=== PATIENT | female | born 1960 | race Caucasian/White ===

== ENCOUNTER → 2016-07-25 | Outpatient (CLI) | payer OTHER ==
--- NOTE | 2016-07-27 07:41 | MM ---
Reason for exam: screening (asymptomatic). Last mammogram was performed 1 year ago. History: Patient is postmenopausal and is nulliparous. Benign left mammotome panel of the left breast, February 11, 2010. Benign excisional biopsy of the left breast, 1989. Benign excisional biopsy of the left breast, 1987. Took hormonal contraceptives for 10 years beginning at age 20. Physical Findings: A clinical breast exam by your physician is recommended on an annual basis and results should be correlated with mammographic findings. MG Screening Mammo w CAD Bilateral CC and MLO view(s) were taken. Prior study comparison: July 27, 2015, right breast MG 3d work up w/cad RT. July 20, 2015, bilateral MG screening mammo w CAD. Previous mammotome biopsy in the left breast x 2. No significant changes when compared with prior studies. ASSESSMENT: Benign, BI-RAD 2 RECOMMENDATION: Routine screening mammogram of both breasts in 1 year.
== END | disposition home or self-care (01) ==
LOC: RADMAMWWP 16:33
PROVIDERS: ATTEND Obstetrics & Gynecology
DX: Z12.31 Encounter for screening mammogram for malignant neoplasm of breast (principal); Z80.3 Family history of malignant neoplasm of breast

== ENCOUNTER → 2016-09-05 | Outpatient (CLI) | payer OTHER ==
--- NOTE | 2016-09-06 08:29 | BD ---
EXAMINATION TYPE: MG DEXA axial skeleton. DATE OF EXAM: 09/05/2016 4:31 PM COMPARISON: NONE CLINICAL HISTORY: osteopenia Height: 5'7 Weight: 232 FRAX RISK QUESTIONS: Alcohol (3 or more units per day): no Family History (Parent hip fracture): no Glucocorticoids (More than 3mos): no (Ex: prednisone, prednisolone, methylprednisolone, dexamethasone, and hydrocortisone). History of Fracture in Adulthood: yes Secondary Osteoporosis: 1. Type 1 Diabetes: no 2. Hyperthyroidism: no 3. Menopause before 45: yes 4. Malnutrition: no 5. Chronic liver disease: no Rheumatoid Arthritis: no Current Tobacco Use: no RISK FACTORS HISTORY OF: Surgery to Spine When: 20 years ago Postmenopausal woman: MEDICATIONS: Additional Medications: diabetes, chol sterol, pain Additional History: EXAM MEASUREMENTS: Bone mineral density about the R hip (g/cm2): 0.721 Bone mineral density about the L hip (g/cm2): 0.785 T Score values are as follows: -----R Neck: -2.3 -----L Neck: -1.8 -----R Intertrochanter: -1.5 -----L Intertrochanter: -1.0 IMPRESSION: Osteopenia (T Score between -2.5 and -1 as noted by T score values: Jaime Hips There is slightly increased risk of fracture and the patient may be considered for treatment. Re-Screen 1-2 years. NOTE: T-SCORE=SD OF THE YOUNG ADULT MEAN.
== END | disposition home or self-care (01) ==
LOC: RADBDWWP 16:15
PROVIDERS: ATTEND Obstetrics & Gynecology
DX: M85.851 Other specified disorders of bone density and structure, right thigh (principal); M85.852 Other specified disorders of bone density and structure, left thigh
CPT/HCPCS: 77080

== ENCOUNTER → 2017-01-25 | Outpatient (CLI) | payer OTHER ==
--- NOTE | 2017-01-25 10:05 | FL ---
EXAMINATION TYPE: FL UGI DATE OF EXAM: 01/25/2017 CLINICAL HISTORY: Difficulty in swallowing TECHNIQUE: A double contrast UGI study is performed. COMPARISON: None FINDINGS: Audio Tape Librarian image of the abdomen shows no gross abnormality.The esophagus shows normal motility and emptying into the stomach. There is mild gastroesophageal reflux noted. Small reducible hiatal he rnia identified. The stomach shows normal distensibility, peristalsis, and mucosal folds. No evidenc e of any mass or ulcer disease. The duodenal bulb, sweep, and proximal small bowel loops are unremar kable. Incidental diverticulum, descending portion of the duodenum. IMPRESSION: 1. Mild gastroesophageal reflux without evidence for esophagitis. 2. Small sliding-type hiatal hernia. 3. Duodenal diverticulum.
== END ==
LOC: RADFLMAIN 09:12
PROVIDERS: ATTEND Family Medicine
DX: K21.9 Gastro-esophageal reflux disease without esophagitis (principal); K44.9 Diaphragmatic hernia without obstruction or gangrene; K57.10 Diverticulosis of small intestine without perforation or abscess without bleeding
CPT/HCPCS: 74240

== ENCOUNTER → 2017-08-01 | Outpatient (CLI) | payer OTHER ==
--- NOTE | 2017-08-02 14:36 | MM ---
Reason for exam: screening (asymptomatic). Last mammogram was performed 1 year ago. History: Patient is postmenopausal and is nulliparous. Benign left mammotome panel of the left breast, February 11, 2010. Benign excisional biopsy of the left breast, 1989. Benign excisional biopsy of the left breast, 1987. Took hormonal contraceptives for 10 years beginning at age 20. Physical Findings: A clinical breast exam by your physician is recommended on an annual basis and results should be correlated with mammographic findings. MG 3D Screening Mammo W/Cad Bilateral CC and MLO view(s) were taken. Prior study comparison: July 25, 2016, bilateral MG screening mammo w CAD. July 27, 2015, right breast MG 3d work up w/cad RT. The breast tissue is heterogeneously dense. This may lower the sensitivity of mammography. Previous mammotome biopsy in the left breast. No significant changes when compared with prior studies. ASSESSMENT: Benign, BI-RAD 2 RECOMMENDATION: Routine screening mammogram of both breasts in 1 year.
== END | disposition home or self-care (01) ==
LOC: RADMAMWWP 16:11
PROVIDERS: ATTEND Obstetrics & Gynecology
DX: Z12.31 Encounter for screening mammogram for malignant neoplasm of breast (principal)
CPT/HCPCS: 77063; 77067

== ENCOUNTER → 2018-08-21 | Outpatient (CLI) | payer OTHER ==
--- NOTE | 2018-08-23 10:23 | MM ---
Reason for exam: screening (asymptomatic). Last mammogram was performed 1 year and 1 month ago. History: Patient is postmenopausal and is nulliparous. Benign left mammotome panel of the left breast, February 11, 2010. Benign excisional biopsy of the left breast, 1989. Benign excisional biopsy of the left breast, 1987. Took hormonal contraceptives for 10 years beginning at age 20. Physical Findings: A clinical breast exam by your physician is recommended on an annual basis and results should be correlated with mammographic findings. MG 3D Screening Mammo W/Cad Bilateral CC, MLO, and XCCL view(s) were taken. Prior study comparison: August 01, 2017, bilateral MG 3d screening mammo w/cad. July 25, 2016, bilateral MG screening mammo w CAD. The breast tissue is heterogeneously dense. This may lower the sensitivity of mammography. Previous mammotome biopsy in the left breast x 2. No significant changes when compared with prior studies. ASSESSMENT: Negative, BI-RAD 1 RECOMMENDATION: Routine screening mammogram of both breasts in 1 year.
== END | disposition home or self-care (01) ==
LOC: RADMAMWWP 07:32
PROVIDERS: ATTEND Obstetrics & Gynecology
DX: Z12.31 Encounter for screening mammogram for malignant neoplasm of breast (principal)
CPT/HCPCS: 77063; 77067

== ENCOUNTER → 2018-09-24 | Outpatient (CLI) | payer OTHER ==
--- NOTE | 2018-09-24 15:13 | BD ---
EXAMINATION TYPE: Axial Bone Density DATE OF EXAM: 09/24/2018 COMPARISON: 08/19/08 CLINICAL HISTORY: Height: 66.5 IN Weight: 240 LBS FRAX RISK QUESTIONS: History of Fracture in Adulthood: LEFT FOOT AGE 50 Secondary Osteoporosis: 3. Menopause before 45: YES TOTAL HYST AGE 37 RISK FACTORS HISTORY OF: Surgery to Spine: L4-L5 When: AGE 30 Active: YES Postmenopausal woman: AGE 37 MEDICATIONS: Additional Medications: CALCIUM, VIT D, LOVASTATIN, METFORMIN, NAPROXEN,MULTI VIT, MAGNESIUM, ZINC EXAM MEASUREMENTS: Bone mineral densitometry was performed using the [employer]. L4-L5 SURGERY AGE 30 Bone mineral density about the R hip (g/cm2): 0.725 Bone mineral density about the L hip (g/cm2): 0.755 T Score values are as follows: -----R Neck: -2.3 -----L Neck: -2.0 -----R Total: -1.6 -----L Total: -1.0 Bone mineral density has: Decreased -2.7% since study of: 08/19/2008 Bone mineral density about the L Wrist (g/cm2): 0.635 T Score values are as follows: -----Dist. R+U: -1.5 -----Prox. R+U: -0.1 -----Radius total: -0.7 Bone mineral density BASELINE IMPRESSION: Osteopenia (T Score between -2.5 and -1). There is slightly increased risk of fracture and the patient may be considered for treatment. Re-Screen 2-5 years. NOTE: T-SCORE=SD OF THE YOUNG ADULT MEAN.
== END | disposition home or self-care (01) ==
LOC: RADBDWWP 07:52
PROVIDERS: ATTEND Obstetrics & Gynecology
DX: M85.80 Other specified disorders of bone density and structure, unspecified site (principal)
CPT/HCPCS: 77080

== ENCOUNTER → 2019-11-27 | Outpatient (CLI) | payer OTHER ==
--- NOTE | 2019-11-27 13:44 | MM ---
Reason for exam: screening (asymptomatic). Last mammogram was performed 1 year and 3 months ago. History: Patient is postmenopausal and is nulliparous. Benign left mammotome panel of the left breast, February 11, 2010. Benign excisional biopsy of the left breast, 1989. Benign excisional biopsy of the left breast, 1987. Took hormonal contraceptives for 10 years beginning at age 20. Physical Findings: A clinical breast exam by your physician is recommended on an annual basis and results should be correlated with mammographic findings. MG 3D Screening Mammo W/Cad Bilateral CC and MLO view(s) were taken. Prior study comparison: August 21, 2018, bilateral MG 3d screening mammo w/cad. August 01, 2017, bilateral MG 3d screening mammo w/cad. The breast tissue is heterogeneously dense. This may lower the sensitivity of mammography. Increasing indeterminate microcalcifications upper central left breast. This finding is changed when compared with previous exams. ASSESSMENT: Incomplete: need additional imaging evaluation, BI-RAD 0 RECOMMENDATION: Special view mammogram of the left breast. [facility] will attempt to contact patient to return for supplemental views.
== END | disposition home or self-care (01) ==
LOC: RADMAMWWP 08:16
PROVIDERS: ATTEND Obstetrics & Gynecology
DX: Z12.31 Encounter for screening mammogram for malignant neoplasm of breast (principal)
CPT/HCPCS: 77063; 77067

== ENCOUNTER → 2019-12-03 | Outpatient (CLI) | payer OTHER ==
--- NOTE | 2019-12-03 10:03 | MM ---
Reason for exam: additional evaluation requested from abnormal screening. Last mammogram was performed less than 1 month ago. History: Patient is postmenopausal and is nulliparous. Benign left mammotome panel of the left breast, February 11, 2010. Benign excisional biopsy of the left breast, 1989. Benign excisional biopsy of the left breast, 1987. Took hormonal contraceptives for 10 years beginning at age 20. Physical Findings: Nurse did not find any significant physical abnormalities on exam. MG 3D Work Up W/Cad LT CC with magnification, LM with magnification, and LM view(s) were taken of the left breast. Prior study comparison: November 27, 2019, bilateral MG 3d screening mammo w/cad. August 21, 2018, bilateral MG 3d screening mammo w/cad. There are some partially layering calcifications upper outer left breast. 6 month follow up recommended. These results were verbally communicated with the patient and result sheet given to the patient on 12/03/19. ASSESSMENT: Probably benign, BI-RAD 3 RECOMMENDATION: Follow-up diagnostic mammogram of the left breast in 6 months. (with magnification views)
== END | disposition home or self-care (01) ==
LOC: RADMAMWWP 08:55
PROVIDERS: ATTEND Obstetrics & Gynecology
DX: R92.8 Other abnormal and inconclusive findings on diagnostic imaging of breast (principal)
CPT/HCPCS: 77061; 77065

== ENCOUNTER → 2020-03-26 | Outpatient (CLI) | payer OTHER ==
[2020-03-26 09:36] LABS: Basophils # (A) 0.1 k/uL (0-0.2); Basophils % (A) 1 %; Eosinophils # (A) 0.2 k/uL (0-0.7); Eosinophils % (A) 3 %; HCT 45.2 % (34.0-46.0); HGB 14.4 gm/dL (11.4-16.0); Lymphocytes % (A) 32 %; MCH 29.7 pg (25.0-35.0); MCHC 31.9 g/dL (31.0-37.0); Mean Platelet Volume 9.9; Monocytes # (A) 0.3 k/uL (0-1.0); Monocytes % (A) 5 %; Neutrophils # (A) 3.4 k/uL (1.3-7.7); Neutrophils % (A) 55 %; Platelet Count 265 k/uL (150-450); RBC 4.86 m/uL (3.80-5.40); WBC 6.2 k/uL (3.8-10.6)
[2020-03-26 14:40] LABS: African American GFR (CKD) 93.5 (60.0-200.0); Anion Gap 3.2 mmol/L (4.00-12.00); BUN/Creat Ratio 22.5 Ratio (12.00-20.00); Calcium 9.9 mg/dL (8.7-10.3); Carbon Dioxide 32.8 mmol/L (21.6-31.8); Chol/HDL Ratio 3.42; Non-African American GFR(CKD) 80.7 (60.0-200.0); Potassium 4.5 mmol/L (3.5-5.5)
[2020-03-26 16:31] LABS: Hemoglobin A1C 6.2 % (4.0-6.0)
== END | disposition home or self-care (01) ==
LOC: LABWHC1 08:10
PROVIDERS: ATTEND Family Medicine
DX: E11.9 Type 2 diabetes mellitus without complications (principal); E55.9 Vitamin D deficiency, unspecified; E78.5 Hyperlipidemia, unspecified; R03.0 Elevated blood-pressure reading, without diagnosis of hypertension
CPT/HCPCS: 36415; 80048; 80061; 82306; 83036; 83735; 84450; 84460; 85025

== ENCOUNTER → 2020-06-01 | Outpatient (CLI) | payer OTHER ==
--- NOTE | 2020-06-02 09:14 | MM ---
Reason for exam: follow-up at short interval from prior study. Last mammogram was performed 6 months ago. History: Patient is postmenopausal and is nulliparous. Benign left mammotome panel of the left breast, February 11, 2010. Benign excisional biopsy of the left breast, 1989. Benign excisional biopsy of the left breast, 1987. Took hormonal contraceptives for 10 years beginning at age 20. Physical Findings: Nurse did not find any significant physical abnormalities on exam. MG 3D Diag Mammo W/Cad LT CC and MLO view(s) were taken of the left breast. Prior study comparison: December 03, 2019, left breast MG 3d work up w/cad LT. November 27, 2019, bilateral MG 3d screening mammo w/cad. There are scattered fibroglandular densities. Previous mammotome biopsy in the left breast. Very faint subtle calcifications are suggested centrally in the left breast, stable for 6 months. Additional 6 month follow up recommended. These results were verbally communicated with the patient and result sheet given to the patient on 06/01/20. ASSESSMENT: Probably benign, BI-RAD 3 RECOMMENDATION: Follow-up diagnostic mammogram of both breasts in 6 months. Back on schedule for November 2020.
== END | disposition home or self-care (01) ==
LOC: RADMAMWWP 15:05
PROVIDERS: ATTEND Obstetrics & Gynecology
DX: R92.8 Other abnormal and inconclusive findings on diagnostic imaging of breast (principal)
CPT/HCPCS: 77061; 77065

== ENCOUNTER → 2020-09-01 | Outpatient (CLI) | payer OTHER ==
[2020-09-01 12:59] LABS: Appearance,Urine Clear (Clear); Bilirubin,Urine 2+ (Negative); Blood,Urine Negative (Negative); Color,Urine Yellow; Glucose,Urine (UA) Negative (Negative); Ketones,Urine Negative (Negative); Leukocyte Esterase,Urine Negative (Negative); Nitrite,Urine Negative (Negative); PH, Urine 5.5 (5.0-8.0); Protein,Urine Negative (Negative); Specific Gravity,Urine 1.017 (1.001-1.035); Urobilinogen,Urine <2.0 mg/dL (<2.0)
[2020-09-01 15:52] LABS: HGB 13.8 g/dL (12.0-15.0); MCH 29.7 pg (27.0-32.0); MCHC 32.1 g/dL (32.0-37.0); MCV 92.7 fL (80.0-97.0); Mean Platelet Volume 12.5 fL (9.5-12.2); Platelet Count 307 X 10*3/uL (140-440); RBC 4.64 X 10*6/uL (4.10-5.20); RDW 12.2 % (11.5-14.5); WBC 5.49 X 10*3/uL (4.50-10.00)
[2020-09-01 17:11] LABS: Appearance,Urine Clear (Clear); Bilirubin,Urine Negative (Negative); Blood,Urine Negative (Negative); Color,Urine Light Yellow; Glucose,Urine (UA) Negative (Negative); Ketones,Urine Negative (Negative); Leukocyte Esterase,Urine Negative (Negative); Nitrite,Urine Negative (Negative); PH, Urine 6.5 (5.0-8.0); Protein,Urine Negative (Negative); Specific Gravity,Urine 1.002 (1.001-1.035); Urobilinogen,Urine <2.0 mg/dL (<2.0)
[2020-09-01 17:39] LABS: African American GFR (CKD) 93.5 (60.0-200.0); Albumin 4.8 g/dL (3.80-4.90); Albumin/Globulin Ratio 2.4 (1.60-3.17); Anion Gap 11.2 mmol/L (4.00-12.00); Calcium 9.7 mg/dL (8.7-10.3); Carbon Dioxide 25.8 mmol/L (21.6-31.8); Chol/HDL Ratio 4.64; LDL Cholesterol,Calculated 81.6 mg/dL (0.0-131.0); Non-African American GFR(CKD) 80.7 (60.0-200.0); Potassium 4.4 mmol/L (3.5-5.5); Total Bilirubin 0.5 mg/dL (0.3-1.2); Total Protein 6.8 g/dL (6.2-8.2); VLDL Calculation 60.4 mg/dL (5.00-40.00)
[2020-09-01 20:14] LABS: Hemoglobin A1C 6.4 % (4.0-6.0)
[2020-09-02 01:09] LABS: Urine Creatinine 99.7 mg/dL
[2020-09-02 11:23] LABS: Urine Creatinine 33.7 mg/dL
== END | disposition home or self-care (01) ==
LOC: LABWHC1 07:23
PROVIDERS: ATTEND Family Medicine
DX: Z00.00 Encounter for general adult medical examination without abnormal findings (principal); E11.9 Type 2 diabetes mellitus without complications
CPT/HCPCS: 36415; 80053; 80061; 81003; 82043; 82306; 82570; 83036; 85027

== ENCOUNTER → 2020-12-02 | Outpatient (CLI) | payer OTHER ==
--- NOTE | 2020-12-02 12:16 | BD ---
EXAMINATION TYPE: Axial Bone Density DATE OF EXAM: 12/02/2020 COMPARISON: 09.24.2018 CLINICAL HISTORY: 60 YR OLD FEMALE.....ICD-10 CODE: M89.9 DISORDER OF BONE Height: 66.2 Weight: 225 FRAX RISK QUESTIONS: History of Fracture in Adulthood: YES Secondary Osteoporosis: YES 3. Menopause before 45: YES RISK FACTORS HISTORY OF: RT FOOT FX AN ADULT Surgery to Spine L4,L5 FUSION TO SPINE Postmenopausal woman: TOTAL HYST AT AGE 40 OR YOUNGER Hyperparathyroidism: NO Adrenal Insufficiency: NO MEDICATIONS: Additional Medications: REFLUX MEDS, STATIN FOR CHOLESTEROL, VIT D3 AND CALCIUM, METFORMIN Additional History: EARLY SURGICAL MENOPAUSE, REFLUX, CHOLESTEROL, DIABETES EXAM MEASUREMENTS: Bone mineral densitometry was performed using the [employer] System. Bone mineral density about the R hip (g/cm2): 0.808 Bone mineral density about the L hip (g/cm2): 0.857 T Score values are as follows: -----R Neck: -2.3 -----L Neck: -2.1 -----R Total: -1.6 -----L Total: -1.2 Bone mineral density has: Decreased -1.3% since study of: 09.24.2018 FRAX%s: THERE IS A 16.6% CHANCE FOR A MAJOR OSTEOPOROTIC FX AND A 2.7% FOR HIP.....PROBABILITY FOR FX IN 10 YRS TIME Bone mineral density about the L Wrist (g/cm2): 0.595 T Score values are as follows: -----Dist. R+U: -1.7 -----Prox. R+U: -0.6 -----Radius total: -0.6 Bone mineral density has: Decreased -4.2% since study of: 09.24.2018 IMPRESSION: Osteopenia. NOTE: T-SCORE=SD OF THE YOUNG ADULT MEAN.
== END | disposition home or self-care (01) ==
LOC: RADBDWWP 09:58
PROVIDERS: ATTEND Obstetrics & Gynecology
DX: M85.80 Other specified disorders of bone density and structure, unspecified site (principal)
CPT/HCPCS: 77080

== ENCOUNTER → 2020-12-27 | Outpatient (CLI) | payer OTHER ==
--- NOTE | 2020-12-28 15:13 | MM ---
Reason for exam: additional evaluation requested from prior study. Last mammogram was performed 7 months ago. History: Patient is postmenopausal and is nulliparous. Benign left mammotome panel of the left breast, February 11, 2010. Benign excisional biopsy of the left breast, 1989. Benign excisional biopsy of the left breast, 1987. Took hormonal contraceptives for 10 years beginning at age 20. Physical Findings: Nurse did not find any significant physical abnormalities on exam. MG 3D Diag Mammo W/Cad BETITO Bilateral CC and MLO view(s) were taken. Prior study comparison: June 01, 2020, left breast MG 3d diag mammo w/cad LT. December 03, 2019, left breast MG 3d work up w/cad LT. Previous mammotome biopsy in the left breast. No significant new findings when compared with previous films. These results were verbally communicated with the patient and result sheet given to the patient on 12/27/20. ASSESSMENT: Benign, BI-RAD 2 RECOMMENDATION: Routine screening mammogram of both breasts in 1 year.
== END | disposition home or self-care (01) ==
LOC: RADMAMWWP 14:06
PROVIDERS: ATTEND Obstetrics & Gynecology
DX: Z78.0 Asymptomatic menopausal state (principal)
CPT/HCPCS: 77062; 77066

== ENCOUNTER → 2021-02-18 | Outpatient (CLI) | payer OTHER ==
[2021-02-18 08:02] LABS: Appearance,Urine Clear (Clear); Bilirubin,Urine Negative (Negative); Blood,Urine Negative (Negative); Color,Urine Light Yellow; Glucose,Urine (UA) Negative (Negative); Ketones,Urine Negative (Negative); Leukocyte Esterase,Urine Small (Negative); Nitrite,Urine Negative (Negative); PH, Urine 6.5 (5.0-8.0); Protein,Urine Negative (Negative); RBC,Urine <1 /hpf (0-5); Squamous Epithelial Cell,Urine 1 /hpf (0-4); Urobilinogen,Urine <2.0 mg/dL (<2.0); WBC,Urine 5 /hpf (0-5)
[2021-02-18 11:23] LABS: HCT 42.6 % (37.2-46.3); HGB 13.8 g/dL (12.0-15.0); MCH 29.8 pg (27.0-32.0); MCHC 32.4 g/dL (32.0-37.0); Mean Platelet Volume 12.5 fL (9.5-12.2); Platelet Count 274 X 10*3/uL (140-440); RBC 4.63 X 10*6/uL (4.10-5.20); RDW 11.9 % (11.5-14.5); WBC 5.42 X 10*3/uL (4.50-10.00)
[2021-02-18 15:55] LABS: African American GFR (CKD) 125.2 (60.0-200.0); Albumin 4.9 g/dL (3.8-4.9); Albumin/Globulin Ratio 1.96 (1.60-3.17); Anion Gap 14.1 mmol/L (4.00-12.00); BUN/Creat Ratio 24.51 Ratio (12.00-20.00); Blood Urea Nitrogen 11.3 mg/dL (9.0-27.0); Calcium 9.7 mg/dL (8.7-10.3); Carbon Dioxide 23.9 mmol/L (21.6-31.8); Chol/HDL Ratio 4.83 Ratio; Globulin 2.5 g/dL (1.6-3.3); HDL Cholesterol 41.6 mg/dL (40.00-60.00); LDL Cholesterol,Calculated 106.2 mg/dL (0.0-131.0); Potassium 4.2 mmol/L (3.5-5.5); Total Bilirubin 0.4 mg/dL (0.30-1.20); Total Protein 7.4 g/dL (6.2-8.2); VLDL Calculation 53.2 mg/dL (5.00-40.00)
== END | disposition home or self-care (01) ==
LOC: LABWHC1 07:13
PROVIDERS: ATTEND Family Medicine
DX: E03.9 Hypothyroidism, unspecified (principal); E11.9 Type 2 diabetes mellitus without complications; E55.9 Vitamin D deficiency, unspecified; E78.5 Hyperlipidemia, unspecified
CPT/HCPCS: 36415; 80053; 80061; 81001; 82306; 83036; 84443; 85027

== ENCOUNTER → 2021-12-28 | Outpatient (CLI) | payer OTHER ==
--- NOTE | 2021-12-29 09:17 | MM ---
Reason for Exam: Screening (asymptomatic). Last screening mammogram was performed 12 month(s) ago. Patient History: Menarche at age 12. Patient has no children. Left ovary removed at age 41. Right ovary removed at age 41. Hysterectomy at age 41. Postmenopausal. Hormonal Contraceptives for 10 years from age 20 until age 30. 1989, Benign Excisional Biopsy on the left side. 1987, Benign Excisional Biopsy on the left side. 02/11/2010, Benign Core Biopsy on the left side. Risk Values: Shantelle 5 year model risk: 2.5%. NCI Lifetime model risk: 11.6%. Prior Study Comparison: 08/16/2010 Bilateral Diagnostic Mammogram, [facility]. 07/27/2015 Right Diagnostic Mammogram, [facility]. 08/01/2017 Bilateral Screening Mammogram, [facility]. 08/21/2018 Bilateral Screening Mammogram, [facility]. 11/27/2019 Bilateral Screening Mammogram, [facility]. 12/03/2019 Left Diagnostic Mammogram, [facility]. 06/01/2020 Left Diagnostic Mammogram, [facility]. 12/27/2020 Bilateral Diagnostic Mammogram, [facility]. Tissue Density: The breast tissue is heterogeneously dense. This may lower the sensitivity of mammography. Findings: Analyzed By CAD. There are left biopsy clips. There is no suspicious group of microcalcifications or new suspicious mass in either breast. Overall Assessment: Negative, BI-RAD 1 Management: Screening Mammogram of both breasts in 1 year. A clinical breast exam by your physician is recommended on an annual basis and results should be correlated with mammographic findings. Electronically signed and approved by: Bernard Smith DO
== END | disposition home or self-care (01) ==
LOC: RADMAMWWP 08:59
PROVIDERS: ATTEND Obstetrics & Gynecology
DX: Z12.31 Encounter for screening mammogram for malignant neoplasm of breast (principal); Z78.0 Asymptomatic menopausal state
CPT/HCPCS: 77063; 77067

== ENCOUNTER → 2022-02-15 | Outpatient (CLI) | payer OTHER ==
[2022-02-15 14:27] LABS: Appearance,Urine Clear (Clear); Bilirubin,Urine Negative (Negative); Blood,Urine Negative (Negative); Color,Urine Yellow (Yellow); Ketones,Urine Negative (Negative); Nitrite,Urine Negative (Negative)
[2022-02-15 14:30] LABS: Bacteria,Urine None Seen /HPF (None Seen)
[2022-02-15 14:43] LABS: Basophils # (A) 0.05 X 10*3/uL (0.00-0.10); Eosinophils # (A) 0.23 X 10*3/uL (0.04-0.35); Eosinophils % (A) 4.4 %; HCT 40.7 % (37.2-46.3); HGB 13.3 g/dL (12.0-15.0); Immature Grans, Automated 0 %; Lymphocytes # (A) 2.14 X 10*3/uL (0.90-5.00); Lymphocytes % (A) 40.7 %; MCH 30.4 pg (27.0-32.0); MCHC 32.7 g/dL (32.0-37.0); MCV 92.9 fL (80.0-97.0); Mean Platelet Volume 12.1 fL (9.5-12.2); Monocytes # (A) 0.36 X 10*3/uL (0.20-1.00); Monocytes % (A) 6.8 %; NRBC Per 100 WBC 0 /100 WBCS (0.0-0.0); Neutrophils # (A) 2.48 X 10*3/uL (1.80-7.70); Neutrophils % (A) 47.1 %; Platelet Count 252 X 10*3/uL (140-440); RBC 4.38 X 10*6/uL (4.10-5.20); RDW 11.4 % (11.5-14.5); WBC 5.26 X 10*3/uL (4.50-10.00)
[2022-02-15 15:11] LABS: ALT 16 U/L (8-44); AST 19 U/L (13-35); African American GFR (CKD) 92.8 (60.0-200.0); Albumin 4.5 g/dL (3.8-4.9); Albumin/Globulin Ratio 1.74 (1.60-3.17); Alkaline Phosphatase 92 U/L (41-126); BUN/Creat Ratio 18.84 Ratio (12.00-20.00); Calcium 9.4 mg/dL (8.7-10.3); Chloride 102 mmol/L (96-109); Chol/HDL Ratio 4.57 Ratio; Globulin 2.6 g/dL (1.6-3.3); Glucose 141 mg/dL (70-110); LDL Cholesterol,Calculated 94.4 mg/dL (0.0-131.0); Non-African American GFR(CKD) 80.1 (60.0-200.0); Potassium 4.5 mmol/L (3.5-5.5); Sodium 141 mmol/L (135-145); Total Protein 7.1 g/dL (6.2-8.2)
[2022-02-15 21:51] LABS: Microalbumin Creatinine Ratio <30 mg/g Creat (0-30)
== END | disposition home or self-care (01) ==
LOC: LABWHC1 07:43
PROVIDERS: ATTEND Family Medicine
DX: E11.9 Type 2 diabetes mellitus without complications (principal); E78.5 Hyperlipidemia, unspecified; E55.9 Vitamin D deficiency, unspecified
CPT/HCPCS: 36415; 80053; 80061; 81001; 82043; 82306; 82570; 83036; 85025

== ENCOUNTER → 2022-08-16 | Outpatient (CLI) | payer OTHER ==
[2022-08-16 10:39] LABS: HCT 40.8 % (37.2-46.3); MCH 29.1 pg (27.0-32.0); MCHC 31.9 g/dL (32.0-37.0); MCV 91.5 fL (80.0-97.0); Mean Platelet Volume 12.5 fL (9.5-12.2); NRBC Per 100 WBC 0 /100 WBCS (0.0-0.0); Platelet Count 246 X 10*3/uL (140-440); RBC 4.46 X 10*6/uL (4.10-5.20); RDW 11.6 % (11.5-14.5); WBC 5.76 X 10*3/uL (4.50-10.00)
[2022-08-16 11:11] LABS: ALT 22 U/L (8-44); AST 16 U/L (13-35); African American GFR (CKD) 92.2 (60.0-200.0); Albumin 4.8 g/dL (3.8-4.9); Alkaline Phosphatase 99 U/L (41-126); BUN/Creat Ratio 19.25 Ratio (12.00-20.00); Blood Urea Nitrogen 15.4 mg/dL (9.0-27.0); Calcium 9.7 mg/dL (8.7-10.3); Chloride 104 mmol/L (96-109); Chol/HDL Ratio 4.77 Ratio; Globulin 2.4 g/dL (1.6-3.3); Glucose 159 mg/dL (70-110); LDL Cholesterol,Calculated 78.3 mg/dL (0.0-131.0); Non-African American GFR(CKD) 79.6 (60.0-200.0); Potassium 4.7 mmol/L (3.5-5.5); Sodium 140 mmol/L (135-145); Total Protein 7.2 g/dL (6.2-8.2)
[2022-08-16 13:47] LABS: Appearance,Urine Clear (Clear); Bacteria,Urine None Seen /HPF (None Seen); Bilirubin,Urine Large (Negative); Blood,Urine Negative (Negative); Calcium Oxalate Crystals,Urine Present /LPF (None Seen); Color,Urine Dark Yellow (Yellow); Ketones,Urine Trace mg/dL (Negative); Nitrite,Urine Negative (Negative); PH, Urine 5.5 (5.0-8.0); Specific Gravity,Urine >1.035 (1.001-1.030)
== END | disposition home or self-care (01) ==
LOC: LABWHC1 07:36
PROVIDERS: ATTEND Family Medicine
DX: Z00.00 Encounter for general adult medical examination without abnormal findings (principal)
CPT/HCPCS: 36415; 80053; 80061; 81001; 82043; 82570; 83036; 84439; 84443; 85027

== ENCOUNTER → 2022-08-30 | Outpatient (CLI) | payer OTHER ==
--- NOTE | 2022-08-30 15:19 | XR ---
EXAMINATION TYPE: XR lumbar spine 2 or 3V DATE OF EXAM: 08/30/2022 CLINICAL HISTORY: pain TECHNIQUE: Three views of the lumbar spine are submitted. COMPARISON: CT abdomen and pelvis 01/14/2016 FINDINGS: There are 5 lumbar type vertebral bodies identified. No acute fracture. Minimal grade 1 anterolisthes is of L4-L5. Mild facet arthropathy L4-L5. Postsurgical changes with disc spacer at L5-S1. Vertebral body heights are within normal limits. Mild disc space narrowing at L1-L2 with endplate sclerosis. The overlying soft tissue appears unremarkable. Surgical clips demonstrated within the pelvis. IMPRESSION: 1. No acute fracture. 2. Postsurgical change at L5-S1. 3. Minimal degenerative disc disease.
== END | disposition home or self-care (01) ==
LOC: RADXRMAIN 14:08
PROVIDERS: ATTEND Family Medicine
DX: M51.36 Other intervertebral disc degeneration, lumbar region (principal); Z98.890 Other specified postprocedural states
CPT/HCPCS: 72100

== ENCOUNTER → 2023-01-01 | Outpatient (CLI) | payer OTHER ==
--- NOTE | 2023-01-01 08:55 | BD ---
EXAMINATION TYPE: Axial Bone Density DATE OF EXAM: 01/01/2023 CLINICAL HISTORY: 62 years old Female. ICD-10 CODE: 85.88DISRD OF BONE DENSITY AND STRUCTURE, Height: 66.2 Weight: 232 FRAX RISK QUESTIONS: secondary osteoporosis due to menopause from total hyst. at age 38. History of Fracture in Adulthood: yes RISK FACTORS HISTORY OF: hx of rt foot fracture as an adult Surgery to Spine fusion L4 and L5.. Postmenopausal woman: yes, at age 32 yrs old Hyperparathyroidism: no Adrenal Insufficiency: no MEDICATIONS: Additional Medications: metformin, reflux meds, statin for cholesterol, vit d and calcium Additional History: right TKR, fusion lumbar spine, osteoarthritis, cholesterol, reflux, diabetic, EXAM MEASUREMENTS: Bone mineral densitometry was performed using the [employer] System. Bone mineral density about the R hip (g/cm2): 0.751 Bone mineral density about the L hip (g/cm2): 0.894 T Score values are as follows: -----R Neck: -2.5 -----L Neck: -1.9 -----R Total: -2.0 -----L Total: -0.9 Z Score values are as follows: -----R Neck: -1.1 -----L Neck: -0.5 -----R Total: -0.9 -----L Total: 0.3 Bone mineral density has: Decreased -1.1% since study of: 12.02.2020 Bone mineral density about the L Wrist (g/cm2): 0.587 T Score values are as follows: -----Dist. R+U: -1.7 -----Prox. R+U: -0.9 -----Radius total: -0.8 Z Score values are as follows: -----Dist. R+U: -0.6 -----Prox. R+U: 0.2 -----Radius total: 0.3 Bone mineral density has: Decreased -3.4% since study of: 12.02.2020 FRAX%s: The graph provided illustrates a 19.0% chance for a major osteoporotic fx and a 4.2% chance f or the hips probability for fx in 10 years time. IMPRESSION: Osteopenia (T Score between -2.5 and -1). There is slightly increased risk of fracture and the patient may be considered for treatment. Re-Screen 2-5 years. NOTE: T-SCORE=SD OF THE YOUNG ADULT MEAN.
--- NOTE | 2023-01-01 10:23 | MM ---
Reason for Exam: Screening (asymptomatic). Last screening mammogram was performed 12 month(s) ago. Patient History: Menarche at age 12. Patient has no children. Left ovary removed at age 41. Right ovary removed at age 41. Hysterectomy at age 41. Postmenopausal. Hormonal Contraceptives for 10 years from age 20 until age 30. 1989, Benign Excisional Biopsy on the left side. 1987, Benign Excisional Biopsy on the left side. 02/11/2010, Benign Core Biopsy on the left side. Paternal cousin had breast cancer. Risk Values: Shantelle 5 year model risk: 2.6%. NCI Lifetime model risk: 11.3%. Prior Study Comparison: 06/01/2020 Left Diagnostic Mammogram, [facility]. 12/27/2020 Bilateral Diagnostic Mammogram, [facility]. 12/28/2021 Bilateral MG 3D screening mammo w/cad, [facility]. Tissue Density: The breast tissue is heterogeneously dense. This may lower the sensitivity of mammography. Findings: Analyzed By CAD. Left breast biopsy clips. There is no suspicious group of microcalcifications or new suspicious mass in either breast. Overall Assessment: Benign, BI-RAD 2 Management: Screening Mammogram of both breasts in [address] [facility] will attempt to contact patient to return for supplemental views and ultrasound if indicated. Patient should continue monthly self-breast exams. A clinical breast exam by your physician is recommended on an annual basis. This exam should not preclude additional follow-up of suspicious palpable abnormalities. Note on Shantelle scores and lifetime risk: 1. A Shantelle score greater than 3% is considered moderate risk. If this is the case, consider specialist referral to assess eligibility for a risk reducing agent. 2. If overall lifetime risk for the development of breast cancer is 20% or higher, the patient may qualify for future screening with alternating mammogram and breast MRI. Electronically signed and approved by: Bernard Smith DO
== END | disposition home or self-care (01) ==
LOC: RADMAMWWP 07:38
PROVIDERS: ATTEND Obstetrics & Gynecology
DX: Z12.31 Encounter for screening mammogram for malignant neoplasm of breast (principal); M81.0 Age-related osteoporosis without current pathological fracture; M85.89 Other specified disorders of bone density and structure, multiple sites; Z80.3 Family history of malignant neoplasm of breast; Z78.0 Asymptomatic menopausal state
CPT/HCPCS: 77063; 77067; 77080

== ENCOUNTER → 2023-02-23 | Outpatient (CLI) | payer OTHER ==
[2023-02-23 11:12] LABS: Basophils # (A) 0.07 X 10*3/uL (0.00-0.10); Basophils % (A) 1.5 %; Eosinophils % (A) 4.2 %; HCT 42.8 % (37.2-46.3); Lymphocytes # (A) 1.91 X 10*3/uL (0.90-5.00); MCH 29.5 pg (27.0-32.0); MCHC 32.7 d/dL (32.0-37.0); MCV 90.1 FL (80.0-97.0); Mean Platelet Volume 12.1 FL (9.5-12.2); Monocytes # (A) 0.36 X 10*3/uL (0.20-1.00); Monocytes % (A) 7.5 %; NRBC Per 100 WBC 0 X 10*3/uL (0.00-0.01); Neutrophils # (A) 2.23 X 10*3/uL (1.80-7.70); Neutrophils % (A) 46.6 %; Platelet Count 269 X 10*3/uL (140-440); RBC 4.75 X 10*6/uL (4.10-5.20); RDW 11.8 % (11.5-14.5); WBC 4.78 X 10*3/uL (4.50-10.00)
[2023-02-23 17:20] LABS: ALT 17 U/L (8-44); AST 13 U/L (13-35); Albumin 4.8 d/dL (3.8-4.9); Alkaline Phosphatase 94 U/L (41-126); BUN/Creat Ratio 19.43 Ratio (12.00-20.00); Blood Urea Nitrogen 13.6 mg/dL (9.0-27.0); Calcium 9.8 mg/dL (8.7-10.3); Carbon Dioxide 26.5 mmol/L (21.6-31.8); Chloride 104 mmol/L (96-109); Chol/HDL Ratio 4.99 Ratio; Globulin 2.4 d/dL (1.6-3.3); Glucose 157 mg/dL (70-110); LDL Cholesterol,Calculated 104.7 mg/dL (0.0-131.0); Sodium 143 mmol/L (135-145); Total Bilirubin 0.3 mg/dL (0.3-1.2); Total Protein 7.2 d/dL (6.2-8.2)
== END | disposition home or self-care (01) ==
LOC: LABWHC1 07:57
PROVIDERS: ATTEND Family Medicine
DX: E11.9 Type 2 diabetes mellitus without complications (principal); E78.5 Hyperlipidemia, unspecified; E55.9 Vitamin D deficiency, unspecified
CPT/HCPCS: 36415; 80053; 80061; 82306; 83036; 85025

== ENCOUNTER → 2023-09-01 | Outpatient (CLI) | payer OTHER ==
[2023-09-01 13:27] LABS: Appearance,Urine Clear (Clear); Bilirubin,Urine Negative (Negative); Blood,Urine Negative (Negative); Color,Urine Yellow (Yellow); Ketones,Urine Negative (Negative); Nitrite,Urine Negative (Negative); PH, Urine 6.5; Specific Gravity,Urine 1.012 (1.001-1.030); Urobilinogen,Urine 0.2 E.U./DL
[2023-09-01 13:34] LABS: Bacteria,Urine None Seen (None Seen)
[2023-09-01 13:35] LABS: Basophils # (A) 0.06 X 10*3/uL (0.00-0.10); Basophils % (A) 1.2 %; Eosinophils # (A) 0.19 X 10*3/uL (0.04-0.35); Eosinophils % (A) 3.8 %; HCT 41.5 % (37.2-46.3); HGB 13.4 g/dL (12.0-15.0); Lymphocytes # (A) 1.77 X 10*3/uL (0.90-5.00); MCH 29.3 pg (27.0-32.0); MCHC 32.3 g/dL (32.0-37.0); MCV 90.6 FL (80.0-97.0); Monocytes # (A) 0.38 X 10*3/uL (0.20-1.00); Monocytes % (A) 7.5 %; NRBC Per 100 WBC 0 X 10*3/uL (0.00-0.01); Neutrophils # (A) 2.64 X 10*3/uL (1.80-7.70); Neutrophils % (A) 52.3 %; Platelet Count 280 X 10*3/uL (140-440); RBC 4.58 X 10*6/uL (4.10-5.20); RDW 11.9 % (11.5-14.5); WBC 5.05 X 10*3/uL (4.50-10.00)
[2023-09-01 14:16] LABS: ALT 19 U/L (8-44); AST 13 U/L (13-35); Albumin 4.7 g/dL (3.8-4.9); Albumin/Globulin Ratio 1.88 Ratio (1.60-3.17); Alkaline Phosphatase 95 U/L (41-126); BUN/Creat Ratio 19.57 Ratio (12.00-20.00); Blood Urea Nitrogen 13.7 mg/dL (9.0-27.0); Calcium 9.7 mg/dL (8.7-10.3); Carbon Dioxide 25.6 mmol/L (21.6-31.8); Chloride 103 mmol/L (96-109); Chol/HDL Ratio 5.35 Ratio; Globulin 2.5 g/dL (1.6-3.3); Glucose 186 mg/dL (70-110); LDL Cholesterol,Calculated 113.5 mg/dL (0.0-131.0); Magnesium 1.9 mg/dL (1.5-2.4); Potassium 4.9 mmol/L (3.5-5.5); Sodium 140 mmol/L (135-145); Total Bilirubin 0.4 mg/dL (0.3-1.2); Total Protein 7.2 g/dL (6.2-8.2)
== END | disposition home or self-care (01) ==
LOC: LABWHC1 09:43
PROVIDERS: ATTEND Family Medicine
DX: E11.9 Type 2 diabetes mellitus without complications (principal); E78.5 Hyperlipidemia, unspecified; E55.9 Vitamin D deficiency, unspecified
CPT/HCPCS: 36415; 80053; 80061; 81001; 82306; 83036; 83735; 85025

== ENCOUNTER → 2024-01-03 | Outpatient (CLI) | payer OTHER ==
--- NOTE | 2024-01-18 11:05 | MM ---
Reason for Exam: Screening (asymptomatic). Last screening mammogram was performed 12 month(s) ago. Patient History: Menarche at age 12. Patient has no children. Left ovary removed at age 41. Right ovary removed at age 41. Hysterectomy at age 41. Postmenopausal. Hormonal Contraceptives for 10 years from age 20 until age 30. 1989, Benign Excisional Biopsy on the left side. 1987, Benign Excisional Biopsy on the left side. 02/11/2010, Benign Core Biopsy on the left side. Paternal cousin had breast cancer. Risk Values: Shantelle 5 year model risk: 2.6%. NCI Lifetime model risk: 10.9%. Prior Study Comparison: 12/27/2020 Bilateral Diagnostic Mammogram, [facility]. 12/28/2021 Bilateral MG 3D screening mammo w/cad, [facility]. 01/01/2023 Bilateral MG 3D screening mammo w/cad, [facility]. Tissue Density: There are scattered areas of fibroglandular density. Findings: Analyzed By CAD. Left breast biopsy clip. Right breast: There is no suspicious group of microcalcifications or new suspicious mass. Left breast: There is no suspicious group of microcalcifications or new suspicious mass. Overall Assessment: Negative, BI-RAD 1 Management: Screening Mammogram of both breasts in [address] [facility] will attempt to contact patient to return for supplemental views and ultrasound if indicated. Patient should continue monthly self-breast exams. A clinical breast exam by your physician is recommended on an annual basis. This exam should not preclude additional follow-up of suspicious palpable abnormalities. Note on Shantelle scores and lifetime risk: 1. A Shantelle score greater than 3% is considered moderate risk. If this is the case, consider specialist referral to assess eligibility for a risk reducing agent. 2. If overall lifetime risk for the development of breast cancer is 20% or higher, the patient may qualify for future screening with alternating mammogram and breast MRI. Electronically signed and approved by: Bernard Smith DO
== END | disposition home or self-care (01) ==
LOC: RADMAMWWP 12:00
PROVIDERS: ATTEND Family Medicine
DX: Z12.31 Encounter for screening mammogram for malignant neoplasm of breast
CPT/HCPCS: 77063; 77067

== ENCOUNTER → 2024-02-02 | Outpatient (CLI) | payer OTHER | END | disposition home or self-care (01) | LOC: LABWHC1 09:10 | PROVIDERS: ATTEND Family Medicine | DX: E11.65 Type 2 diabetes mellitus with hyperglycemia (principal) | CPT/HCPCS: 36415; 83036 ==

== ENCOUNTER → 2024-05-15 | Outpatient (CLI) | payer OTHER ==
[2024-05-15 16:00] LABS: Basophils # (A) 0.05 X 10*3/uL (0.00-0.10); Basophils % (A) 0.9 %; Eosinophils % (A) 3.7 %; HCT 43.8 % (37.2-46.3); HGB 13.7 g/dL (12.0-15.0); Lymphocytes # (A) 2.08 X 10*3/uL (0.90-5.00); Lymphocytes % (A) 38.7 %; MCH 28.3 pg (27.0-32.0); MCHC 31.3 g/dL (32.0-37.0); MCV 90.5 FL (80.0-97.0); Mean Platelet Volume 12.6 FL (9.5-12.2); Monocytes # (A) 0.36 X 10*3/uL (0.20-1.00); Monocytes % (A) 6.7 %; NRBC Per 100 WBC 0 X 10*3/uL (0.00-0.01); Neutrophils # (A) 2.68 X 10*3/uL (1.80-7.70); Neutrophils % (A) 49.8 %; Platelet Count 296 X 10*3/uL (140-440); RBC 4.84 X 10*6/uL (4.10-5.20); RDW 11.7 % (11.5-14.5); WBC 5.38 X 10*3/uL (4.50-10.00)
[2024-05-15 16:34] LABS: Chol/HDL Ratio 5.32 Ratio; LDL Cholesterol,Calculated 106.9 mg/dL (0.0-131.0); Magnesium 1.8 mg/dL (1.5-2.4)
[2024-05-15 16:35] LABS: ALT 18 U/L (8-44); AST 16 U/L (13-35); BUN/Creat Ratio 18.71 Ratio (12.00-20.00); Blood Urea Nitrogen 13.1 mg/dL (9.0-27.0); Calcium 9.6 mg/dL (8.7-10.3); Carbon Dioxide 26.1 mmol/L (21.6-31.8); Chloride 102 mmol/L (96-109); Glucose 149 mg/dL (70-110); Potassium 4.9 mmol/L (3.5-5.5); Sodium 140 mmol/L (135-145)
== END | disposition home or self-care (01) ==
LOC: LABWHC1 11:00
PROVIDERS: ATTEND Family Medicine
DX: E11.9 Type 2 diabetes mellitus without complications (principal); E55.9 Vitamin D deficiency, unspecified; E78.5 Hyperlipidemia, unspecified; E61.2 Magnesium deficiency
CPT/HCPCS: 36415; 80048; 80061; 82043; 82306; 82570; 83036; 83735; 84450; 84460; 85025

== ENCOUNTER → 2024-07-14 | Outpatient (CLI) | payer OTHER ==
--- NOTE | 2024-07-14 10:31 | MR ---
EXAMINATION TYPE: MR kidney wo/w con DATE OF EXAM: 07/14/2024 9:55 AM COMPARISON: CT scan abdomen from 06/25/2024. 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 Post contrast imaging was performed. Post IV contrast subtraction images were also submitted for review. IV Contrast: 10 mL Gadobutrol FINDINGS: LOWER CHEST: The heart is mildly enlarged for size. ABDOMEN Liver: No evidence for cirrhosis. Signal dropout on chemical shift out of phase imaging. Gallbladder and Bile ducts: No evidence for ductal dilation, or biliary stricture or evidence of chol edocholithiasis. The gallbladder is surgically absent.. Pancreas: No ductal dilation. No evidence for solid mass. Spleen: Normal for size. Adrenal glands: Unremarkable. Kidneys: Right renal exophytic 38 x 33 mm mass which demonstrates postcontrast enhancement which is p redominantly peripherally. No left renal masses. No evidence for obstructive uropathy. Stomach and Bowel: No evidence for bowel wall thickening or evidence for obstruction. Retroperitoneum/Peritoneum: No evidence of pneumoperitoneum or free fluid. Vasculature: No aortic aneurysm. Musculoskeletal: The osseous structures appear intact. Lymph Nodes: No gross evidence for lymphadenopathy. Abdominal wall: Unremarkable. IMPRESSION: 1. Right renal exophytic complex mass compatible with renal cell carcinoma until proven otherwise. N o evidence for lymphadenopathy at this time. 2. Mild hepatic steatosis. 3. Mild cardiomegaly. [facility], , 07/14/2024 10:29 AM
== END | disposition home or self-care (01) ==
LOC: RADMRIMAIN 08:44
PROVIDERS: ATTEND Urology
DX: D41.01 Neoplasm of uncertain behavior of right kidney (principal); K76.0 Fatty (change of) liver, not elsewhere classified; I51.7 Cardiomegaly
CPT/HCPCS: 74183; A9585

== ENCOUNTER 2024-09-09 11:41 | Day surgery (SDC) | payer OTHER ==
[2024-09-03 11:29] VITALS: BMI 36.0
[~2024-09-09 11:41] MED LIST: LACTATED RINGERS 1,000 ML IV SCH; LIDOCAINE 1% (10MG/ML) FOR IV START INTRADERMA PRN; ONDANSETRON 4 MG/2 ML VIAL IVP PRN
[2024-09-09] MEDS: IV FLUID CONTINUATION 1,000 ML IV ONE (12:18)
[2024-09-09 12:34] VITALS: RESP 16; TEMP 98.2
[2024-09-09] MEDS ORDERED: PROPOFOL 10 MG/ML 20 ML VIAL IV ONE (12:59)
[2024-09-09] MEDS ORDERED: LIDOCAINE 1% INJ 10MG/ML (20 ML MDV) ONE (12:59)
--- NOTE | 2024-09-09 13:24 | P.PCN ---
Date of Procedure: 09/09/24 Procedure(s) Performed: BRIEF HISTORY: Patient is a 63-year-old pleasant white female scheduled for an elective colonoscopy as a part of evaluation of recent episode of acute sigmoid diverticulitis a month ago for which she was treated with antibiotics. She still has intermittent lower abdominal pain and altered bowel movements. PROCEDURE PERFORMED: Colonoscopy with biopsy. PREOPERATIVE DIAGNOSIS: Recent episode of acute sigmoid diverticulitis. IV sedation per Anesthesia. PROCEDURE: After informed consent was obtained, the patient, was brought into the endoscopy unit. IV sedation was administered by Anesthesia under continuous monitoring. Digital rectal examination was normal. Initially the Olympus CF-160 flexible video colonoscope was then inserted in the rectum, gradually advanced into the hepatic tissue with extreme difficulty and at this time I could not advance the scope any further. The scope was removed and the. Colonoscopy was introduced into the rectum and guided advanced into the cecum with moderate to severe difficulty. Careful examination was performed as the scope was gradually being withdrawn. Ileocecal valve appeared very prominent and biopsies were done from this area. The appendiceal orifice were visualized and appeared normal. Prep was excellent. Mucosa of the cecum, ascending colon, transverse colon, descending colon, sigmoid colon, and rectum appeared normal. Retroflexion was performed in the rectum and no lesions were seen. Scattered left-sided div erticulosis. The patient tolerated the procedure well. IMPRESSION: Normal-appearing colon from rectum to cecum with no evidence of colitis or colorectal neoplasia Prominent ileocecal valve Scattered sigmoid diverticulosis. RECOMMENDATIONS: Findings of this examination were discussed with the patient as well as her family. She was advised benefit with identifiable supplements on regular basis.. Recommend repeat screening colonoscopy in 10 years
[2024-09-09 13:51] VITALS: BP 152/78; PULSE 75
== END 2024-09-09 14:06 | disposition home or self-care (01) ==
LOC: ORWHC2ENDO 11:41
PROVIDERS: ATTEND Internal Medicine Gastroenterology
DX: Z09 Encounter for follow-up examination after completed treatment for conditions other than malignant neoplasm (principal); K57.30 Diverticulosis of large intestine without perforation or abscess without bleeding; Z87.19 Personal history of other diseases of the digestive system; E78.5 Hyperlipidemia, unspecified; R73.03 Prediabetes; K21.9 Gastro-esophageal reflux disease without esophagitis; M19.90 Unspecified osteoarthritis, unspecified site; Z91.89 Other specified personal risk factors, not elsewhere classified; Z79.1 Long term (current) use of non-steroidal anti-inflammatories (NSAID); Z79.899 Other long term (current) drug therapy; Z88.1 Allergy status to other antibiotic agents
CPT/HCPCS: 45380; 88305; J2003; J2704